=== PATIENT | male | born 1965 | race Caucasian/White ===

== ENCOUNTER 2022-01-05 12:10 | Emergency (ER) | payer OTHER ==
[2022-01-05 12:26] VITALS: TEMP 98.1; BMI 38.2
[2022-01-05] MEDS ORDERED: METOPROLOL TARTRATE 50 MG TABLET (FP) ONE (13:08)
[2022-01-05 14:03] VITALS: BP 180/99; PULSE 76
== END 2022-01-05 14:47 | disposition home or self-care (01) ==
LOC: JERFT 12:10
PROC: 0HQGXZZ Repair Left Hand Skin, External Approach (ICD-10-PCS; principal; 2022-01-05)
DX: S61.217A Laceration without foreign body of left little finger without damage to nail, initial encounter (principal); R03.0 Elevated blood-pressure reading, without diagnosis of hypertension; W26.8XXA Contact with other sharp object(s), not elsewhere classified, initial encounter
CPT/HCPCS: 99283-25

== ENCOUNTER 2022-01-14 13:36 | Emergency (ER) | payer OTHER ==
[2022-01-14 13:49] VITALS: TEMP 99.7; BMI 38.2
[2022-01-14 15:50] VITALS: BP 130/88; PULSE 86
== END 2022-01-14 15:59 | disposition home or self-care (01) ==
LOC: JERFT 13:36
DX: S61.217A Laceration without foreign body of left little finger without damage to nail, initial encounter (principal); Y99.9 Unspecified external cause status; Z48.02 Encounter for removal of sutures
CPT/HCPCS: 99281-25

== ENCOUNTER 2022-09-28 09:10 | Inpatient (IN) | payer OTHER ==
[2022-09-28] MEDS ORDERED: ASPIRIN 81 MG CHEWABLE TABLETS PO ONE (09:57)
[2022-09-28] MEDS ORDERED: NITROGLYCERIN SUBLINGUAL 1/200 0.3 MG BTL SL ONE (10:00)
[2022-09-28] MEDS ORDERED: ASPIRIN 81 MG CHEWABLE TABLETS ONE (10:16)
[2022-09-28 10:18] LABS: BASO % 0.6 % (0-2.0); EOS % 0.1 % (0-4.5); HEMATOCRIT 48.6 % (35.4-49); HEMOGLOBIN 16.2 GM/dL (11.7-16.9); LYMPH % 15.1 % (8-40); MCHC 33.4 g/dl (32.0-35.9); MEAN CELL VOLUME 89.9 fl (80-96); MEAN PLT VOLUME 11.3 fl (7.5-11.1); MONO % 6.8 % (3.8-10.2); NEUT % 77.4 % (42.8-82.8); PLATELET COUNT 173 10^3/uL (134-434); RDW 13.2 % (11.9-15.9); WHITE BLOOD COUNT 9.6 K/mm3 (4.0-10.0)
[2022-09-28 10:29] LABS: INR 1.03 (0.83-1.09); PROTHROMBIN TIME (PATIENT) 11.8 SEC (9.7-13.0)
[2022-09-28 10:32] LABS: ACTIVATED PTT 32.3 SECONDS (25.2-36.5)
[2022-09-28] MEDS ORDERED: LOSARTAN POTASSIUM 50 MG TABLET PO ONE (10:35)
[2022-09-28 10:37] LABS: CHLORIDE 100 mmol/L (98-107); SODIUM 133 mmol/L (136-145)
[2022-09-28 10:38] LABS: CALCIUM 9.1 mg/dL (8.5-10.1)
[2022-09-28 10:39] LABS: ALBUMIN 3.5 g/dl (3.4-5.0); CO2 24 mmol/L (21-32); GLUCOSE,RANDOM 316 mg/dL (74-106)
[2022-09-28 10:42] LABS: SGOT/AST 92 U/L (15-37)
[2022-09-28 10:44] LABS: BILIRUBIN,TOTAL 0.6 mg/dL (0.2-1); TOT PROT 8.2 g/dl (6.4-8.2)
[2022-09-28 10:45] LABS: ALK PHOS 171 U/L (45-117)
[2022-09-28 10:47] LABS: N-TERMINAL BNP 4038.3 pg/ml (5-125)
[2022-09-28 10:48] LABS: ANION GAP 9 MMOL/L (8-16); SGPT/ALT 36 U/L (13-61)
[2022-09-28] MEDS ORDERED: LOSARTAN POTASSIUM 50 MG TABLET ONE (11:13)
[2022-09-28 12:47] LABS: CALCIUM 8.9 mg/dL (8.5-10.1)
[2022-09-28 12:48] LABS: BLOOD UREA NITROGEN 16.4 mg/dL (7-18)
[2022-09-28 12:51] LABS: CREATININE 0.9 mg/dL (0.55-1.3)
[2022-09-29] MEDS ORDERED: ACETAMINOPHEN 325 MG TABLET (FP) ONE (00:39)
[2022-09-29] MEDS: INSULIN SLIDING SCALE (NOVOLOG) 1 VIAL SQ SCH ×4 (05:24→23:21)
[2022-09-29] MEDS ORDERED: INSULIN (NOVOLOG) ASPART 100 UNITS/ML 10ML VIAL ONE (05:30)
[2022-09-29] MEDS ORDERED: metFORMIN HCL 500 MG TABLET (FP) ONE ×2 (08:00→15:36)
[2022-09-29] MEDS ORDERED: DEXAMETHASONE SOD PHOSPHATE 4 MG/1 ML VIAL ONE (08:01)
[2022-09-29] MEDS ORDERED: ENOXAPARIN NA (PORCINE) 40 MG/0.4 ML DISP.SYRIN SQ ONE (08:01)
[2022-09-29] MEDS ORDERED: TAMSULOSIN HCL 0.4 MG CAP ONE (08:01)
[2022-09-29] MEDS ORDERED: LOSARTAN POTASSIUM 50 MG TABLET ONE (08:01)
[2022-09-29] MEDS: TAMSULOSIN HCL 0.4 MG CAP PO SCH (09:14)
[2022-09-29] MEDS: LOSARTAN POTASSIUM 50 MG TABLET PO SCH (09:14)
[2022-09-29] MEDS: ENOXAPARIN NA (PORCINE) 40 MG/0.4 ML DISP.SYRIN SQ SCH (09:14)
[2022-09-29] MEDS: DEXAMETHASONE SOD PHOSPHATE 10 MG/1 ML VIAL IVPUSH SCH (09:14)
[2022-09-29 09:15] LABS: CALCIUM 8.8 mg/dL (8.5-10.1)
[2022-09-29 09:16] LABS: ALBUMIN 3.2 g/dl (3.4-5.0); BLOOD UREA NITROGEN 18.2 mg/dL (7-18)
[2022-09-29 09:17] LABS: CREATININE 0.9 mg/dL (0.55-1.3)
[2022-09-29 09:18] LABS: BASO % 0.3 % (0-2.0); EOS % 0.1 % (0-4.5); HEMATOCRIT 48.2 % (35.4-49); HEMOGLOBIN 15.8 GM/dL (11.7-16.9); LYMPH % 25.9 % (8-40); MCH 29.9 pg (25.7-33.7); MCHC 32.8 g/dl (32.0-35.9); MEAN CELL VOLUME 91.1 fl (80-96); MEAN PLT VOLUME 11.2 fl (7.5-11.1); MONO % 10.4 % (3.8-10.2); NEUT % 63.3 % (42.8-82.8); PLATELET COUNT 146 10^3/uL (134-434); RDW 13.5 % (11.9-15.9); WHITE BLOOD COUNT 6.9 K/mm3 (4.0-10.0)
[2022-09-29 09:19] LABS: BILIRUBIN,TOTAL 0.6 mg/dL (0.2-1); TOT PROT 6.9 g/dl (6.4-8.2)
[2022-09-29] MEDS ORDERED: REMDESIVIR 100 MG in SODIUM CHLORIDE 250 ML IVPB SCH (15:00)
[2022-09-29] MEDS ORDERED: REMDESIVIR 200 MG in SODIUM CHLORIDE 250 ML IVPB ONE (15:00)
[2022-09-30] MEDS: INSULIN SLIDING SCALE (NOVOLOG) 1 VIAL SQ SCH ×4 (06:12→23:36)
[2022-09-30] MEDS ORDERED: metoPROLOL SUCCINATE 25 MG TAB.SR.24H (FP) PO ONE (09:27)
[2022-09-30] MEDS ORDERED: LOSARTAN POTASSIUM 50 MG TABLET ONE (09:27)
[2022-09-30] MEDS ORDERED: DEXAMETHASONE SOD PHOSPHATE 10 MG/1 ML VIAL ONE (09:27)
[2022-09-30] MEDS ORDERED: TAMSULOSIN HCL 0.4 MG CAP ONE (09:27)
[2022-09-30] MEDS ORDERED: ENOXAPARIN NA (PORCINE) 40 MG/0.4 ML DISP.SYRIN SQ ONE (09:28)
[2022-09-30] MEDS: metoPROLOL SUCCINATE 25 MG TAB.SR.24H (FP) PO SCH (09:30)
[2022-09-30] MEDS: TAMSULOSIN HCL 0.4 MG CAP PO SCH (09:30)
[2022-09-30] MEDS: DEXAMETHASONE SOD PHOSPHATE 10 MG/1 ML VIAL IVPUSH SCH (09:30)
[2022-09-30] MEDS: LOSARTAN POTASSIUM 50 MG TABLET PO SCH (09:30)
[2022-09-30] MEDS: ENOXAPARIN NA (PORCINE) 40 MG/0.4 ML DISP.SYRIN SQ SCH (09:47)
[2022-09-30] MEDS ORDERED: guaiFENesin/D-M SUGAR-FREE/ACLHOL-FREE 5 ML UNIT DOSE PO PRN (10:32)
[2022-09-30] MEDS ORDERED: ACETAMINOPHEN 325 MG TABLET (FP) PO PRN (10:43)
[2022-09-30] MEDS: REMDESIVIR 100 MG in SODIUM CHLORIDE 250 ML IVPB SCH (14:57)
[2022-09-30] MEDS ORDERED: MELATONIN 5 MG TABLETS PO PRN (21:00)
[2022-10-01 00:39] VITALS: BMI 38.6
[2022-10-01] MEDS: INSULIN SLIDING SCALE (NOVOLOG) 1 VIAL SQ SCH ×2 (06:58→11:58)
[2022-10-01] MEDS ORDERED: INSULIN (NOVOLOG) ASPART 100 UNITS/ML 10ML VIAL ONE ×2 (07:37→11:55)
[2022-10-01] MEDS: LOSARTAN POTASSIUM 50 MG TABLET PO SCH (09:39)
[2022-10-01] MEDS: ENOXAPARIN NA (PORCINE) 40 MG/0.4 ML DISP.SYRIN SQ SCH (09:39)
[2022-10-01] MEDS: metoPROLOL SUCCINATE 25 MG TAB.SR.24H (FP) PO SCH (09:39)
[2022-10-01] MEDS: TAMSULOSIN HCL 0.4 MG CAP PO SCH (09:40)
[2022-10-01 10:01] LABS: HEMATOCRIT 44.9 % (35.4-49); HEMOGLOBIN 14.9 GM/dL (11.7-16.9); MCHC 33.3 g/dl (32.0-35.9); MEAN CELL VOLUME 90.3 fl (80-96); MEAN PLT VOLUME 11.1 fl (7.5-11.1); PLATELET COUNT 155 10^3/uL (134-434); RBC 4.98 M/mm3 (4.00-5.60); RDW 13.2 % (11.9-15.9); WHITE BLOOD COUNT 7.8 K/mm3 (4.0-10.0)
[2022-10-01 10:21] LABS: BLOOD UREA NITROGEN 25.6 mg/dL (7-18); CALCIUM 8.9 mg/dL (8.5-10.1)
[2022-10-01 10:25] LABS: CREATININE 0.9 mg/dL (0.55-1.3); PHOSPHOROUS 3.2 mg/dL (2.5-4.9)
[2022-10-01] MEDS: REMDESIVIR 100 MG in SODIUM CHLORIDE 250 ML IVPB SCH (14:02)
[2022-10-01 14:46] VITALS: BP 158/83; PULSE 76; RESP 16; TEMP 98.1
== END 2022-10-01 16:25 | disposition home or self-care (01) | DRG 179 ==
LOC: JER 09:10 → JERBED 12:40 → OBSVTOIN 22:44 → J8W 09-30 19:42
PROVIDERS: ADMIT Family Medicine; ATTEND Nurse Practitioner Acute Care
PROC: XW033E5 Introduction of Remdesivir Anti-infective into Peripheral Vein, Percutaneous Approach, New Technology Group 5 (ICD-10-PCS; principal; 2022-09-28)
PROC: 3E0333Z Introduction of Anti-inflammatory into Peripheral Vein, Percutaneous Approach (ICD-10-PCS; 2022-09-28)
DX: U07.1 COVID-19 (principal); I10 Essential (primary) hypertension; E11.9 Type 2 diabetes mellitus without complications; E78.5 Hyperlipidemia, unspecified; R00.0 Tachycardia, unspecified; R94.31 Abnormal electrocardiogram [ECG] [EKG]; I45.10 Unspecified right bundle-branch block; Z91.14 Patient's other noncompliance with medication regimen
CPT/HCPCS: 0241U-QW; 36415; 71045-TC-FY; 80048; 80053; 82728; 82962; 83036; 83735; 83880; 84100; 84484; 85025; 85027; 85379; 85610; 85730; 86140; 93005; 93010; 99285-25; C9399; G0378; J1100